=== PATIENT | female | born 1995 | race Caucasian/White ===

== ENCOUNTER 2017-02-26 20:38 | Emergency (ER) | payer MEDICAID ==
[~2017-02-26] VITALS: Ht 172.7 cm; Wt 107.5 kg
[~2017-02-26 20:38] MED LIST: CEPH250T PO
[2017-02-26] MEDS ORDERED: PENI500T2 PO (21:48)
[2017-02-26] MEDS ORDERED: GENT5DRO4 EACHEYE (21:48)
[2017-02-26 22:02] VITALS: BP 125/80
== END 2017-02-26 22:04 | disposition home or self-care (01) ==
LOC: ER 20:39
DX: H10.9 Unspecified conjunctivitis (principal); J02.0 Streptococcal pharyngitis
CPT/HCPCS: 87880; 99283